=== PATIENT | male | born 1960 | race African-American/Black ===

== ENCOUNTER 2016-09-05 18:03 | Emergency (ER) | payer OTHER ==
[~2016-09-05] VITALS: Ht 180.3 cm; Wt 93.0 kg
[~2016-09-05 18:03] MED LIST: GLIP5TAB13 PO; LOSA25TA5 PO; METF850T PO
[2016-09-05 18:12] VITALS: Ht 180.3 cm; Wt 93.0 kg
[2016-09-05 20:12] LABS: ADD SCAN DIFF NO
[2016-09-05 20:17] LABS: BASOPHILS % 0.4 % (0.0-2.0); EOSINOPHILS # 0.2 10^3/ul (0.0-0.5); EOSINOPHILS % 2.2 % (0.0-7.0); HEMATOCRIT 24.4 % (42.0-52.0); HEMOGLOBIN 7.5 g/dl (14.0-18.0); LYMPHOCYTES # 1.8 10^3/ul (0.8-2.9); LYMPHOCYTES % 23.4 % (15.0-51.0); MEAN CORPUSCULAR HEMOGLOBIN 27.2 pg (29.0-33.0); MEAN CORPUSCULAR HGB CONC 30.7 g/dl (32.0-37.0); MEAN CORPUSCULAR VOLUME 88.4 fl (82.0-101.0); MEAN PLATELET VOLUME 11.7 fl (7.4-10.4); MONOCYTE # 0.7 10^3/ul (0.3-0.9); MONOCYTES % 9.2 % (0.0-11.0); NEUTROPHILS % 64.5 % (39.0-77.0); PLATELET COUNT 257 10^3/UL (140-415); RED BLOOD COUNT 2.76 10^6/ul (4.70-6.10); RED CELL DISTRIBUTION WIDTH 14.8 % (11.5-14.5); WHITE BLOOD COUNT 7.7 10^3/ul (4.8-10.8)
[2016-09-05 20:31] LABS: INR 1.06; PROTIME 13.8 Sec (12.2-14.2); PT RATIO 1.1
[2016-09-05 20:32] LABS: PARTIAL THROMBOPLASTIN TIME 32.2 Sec (25.0-35.0)
--- NOTE | 2016-09-05 20:35 | RADRPT ---
PROCEDURE: XR Chest. CLINICAL INDICATION: Chest pain. TECHNIQUE: Single frontal view of the chest. COMPARISON: None. FINDINGS: The cardiomediastinal silhouette is within normal limits. The lungs are clear. No signs of pleural f luid or pneumothorax are seen. The osseous structures and soft tissues are unremarkable. IMPRESSION: No evidence for active cardiopulmonary disease. RPTAT: [facility] Physician Tin Date Time Electronically viewed and signed by Physician Tin on 09/05/2016 20:35 RS/
[2016-09-05 20:39] LABS: ALANINE AMINOTRANSFERASE 37 IU/L (13-69); ALBUMIN 4.3 g/dl (3.3-4.9); ALKALINE PHOSPHATASE 85 IU/L (42-121); ANION GAP 15 (8-16); ASPARTATE AMINO TRANSFERASE 22 IU/L (15-46); BLOOD UREA NITROGEN 58 mg/dl (7-20); CALCIUM 9.4 mg/dl (8.4-10.2); CARBON DIOXIDE 17 mmol/L (21-31); CHLORIDE 113 mmol/L (97-110); CREATININE 2.78 mg/dl (0.61-1.24); GLUCOSE 217 mg/dl (70-220); POTASSIUM 5.1 mmol/L (3.5-5.1); SODIUM 140 mmol/L (135-144); TOTAL PROTEIN 8.6 g/dl (6.1-8.1)
[2016-09-05] MEDS ORDERED: SOD CHLORIDE 0.9% 250 ML IV ONE (20:50)
[2016-09-05] MEDS ORDERED: GLIP-95 PO (20:50)
[2016-09-05] MEDS ORDERED: METF500T4 PO (20:51)
[2016-09-05] MEDS ORDERED: FER325 PO (20:51)
[2016-09-05 20:52] LABS: TROPONIN-I < 0.012 ng/ml (0.00-0.12)
[2016-09-05 20:56] LABS: ADD UMIC YES; UR ASCORBIC ACID NEGATIVE (NEGATIVE); UR BACTERIA FEW /HPF (NONE SEEN); UR BILIRUBIN (Dip) NEGATIVE (NEGATIVE); UR BLOOD (Dip) 1+ mg/dL (NEGATIVE); UR CLARITY TURBID (CLEAR); UR COLOR YELLOW (YELLOW); UR GLUCOSE (Dip) NEGATIVE (NEGATIVE); UR KETONES (Dip) NEGATIVE (NEGATIVE); UR LEUKOCYTE ESTERASE (Dip) 3+ Leu/ul (NEGATIVE); UR NITRITE (Dip) NEGATIVE (NEGATIVE); UR RBC 4 /HPF (0-5); UR SPECIFIC GRAVITY (Dip) 1.014 (1.003-1.030); UR TOTAL PROTEIN (Dip) 1+ mg/dl (NEGATIVE); UR UROBILINOGEN (Dip) NEGATIVE (NEGATIVE)
--- NOTE | 2016-09-05 21:29 | ERD ---
ER Documentation Chief Complaint Date/Time DATE: 09/05/16 TIME: 21:27 Chief Complaint SEND BY PMD DUE LOW HGB,FEELS DIZZY HPI This is a 56-year-old male presents to the emergency room for evaluation of weakness and dizziness. The patient states that he was told by his primary care doctor who he is seen for 1 day that he has low blood count. The patient does not know what the number was and was sent to the emergency room for evaluation. He denies any chest pain, and denies any dark stools. He denies being on any blood thinners. ROS All systems reviewed and are negative except as per history of present illness. Medications Home Meds Reported Medications Ferrous Sulfate* (Ferrous Sulfate*) 325 Mg Tabec, 325 MG PO TID, TAB 09/05/16 Metformin Hcl* (Metformin Hcl*) 500 Mg Tablet, 500 MG PO WITH BREAKFAST DINNE, # 60 TAB 09/05/16 Glipizide* (Glipizide*) 10 Mg Tablet, 10 MG PO AC BREAKFAST DINNER, TAB 09/05/16 Losartan Potassium* (Losartan Potassium*) 25 Mg Tablet, 25 MG PO DAILY, TAB 06/12/15 Discontinued Reported Medications Glipizide* (Glipizide*) 5 Mg Tablet, 5 MG PO BID, TAB 06/12/15 Metformin Hcl* (Metformin Hcl*) 850 Mg Tablet, 850 MG PO WITH BREAKFAST DINNE, # 60 TAB 06/12/15 Allergies Allergies: Coded Allergies: No Known Allergy (Unverified , 09/05/16) PMhx/Soc History of Surgery: Yes (RT CATARACT) Anesthesia Reaction: No Hx Neurological Disorder: No Hx Respiratory Disorders: No Hx Cardiac Disorders: Yes (HTN) Hx Psychiatric Problems: No Hx Miscellaneous Medical Probl: No Hx Alcohol Use: Yes (SOCIALLY) Hx Substance Use: No Hx Tobacco Use: Yes Smoking Status: Never smoker Physical Exam Vitals Vital Signs Date Time Temp Pulse Resp B/P Pulse Ox O2 Delivery O2 Flow Rate FiO2 09/05/16 18:12 98.1 80 18 136/63 99 Physical Exam INITIAL VITAL SIGNS: Reviewed by me GENERAL: The patient is well developed and appropriate for usual state of health in no apparent distress HEENT: Pupils equal, round, and reactive to light. EOMI. There is no scleral icterus. NECK: C-spine is soft and supple, there is no meningismus. There is no cervical lymphadenopathy. LUNGS: Clear to auscultation bilaterally. There are no rales, wheezes or rhonchi. HEART: Regular rate and rhythm, no murmurs, clicks, rubs or gallops. ABDOMEN: Soft, non-tender, non-distended. There are bowel sounds in all four quadrants. No rebound or guarding. EXTREMITIES: There is no peripheral cyanosis or edema. No focal swelling or erythema. NEUROLOGICAL: The patient moves all four extremities with 5/5 strength. Cranial nerves II - XII are intact. Normal gait. Alert and oriented SKIN: There is no apparent rash or petechiae. Rectal: Brown stool heme-negative HEME/LYMPHATIC: There is no evidence of excessive bruising or lymphedema. PSYCHIATRIC: The patient does not appear anxious or depressed. Result Diagram: 09/05/16200409/05/162004 Results 24 hrs Laboratory Tests Test 09/05/16 20:05 09/05/16 20:20 White Blood Count 7.710^3/ul Red Blood Count 2.7610^6/ul Hemoglobin 7.5g/dl Hematocrit 24.4% Mean Corpuscular Volume 88.4fl Mean Corpuscular Hemoglobin 27.2pg Mean Corpuscular Hemoglobin Concent 30.7g/dl Red Cell Distribution Width 14.8% Platelet Count 28820^3/UL Mean Platelet Volume 11.7fl Neutrophils % 64.5% Lymphocytes % 23.4% Monocytes % 9.2% Eosinophils % 2.2% Basophils % 0.4% Nucleated Red Blood Cells % 0.0/100WBC Neutrophils # 5.010^3/ul Lymphocytes # 1.810^3/ul Monocytes # 0.710^3/ul Eosinophils # 0.210^3/ul Basophils # 0.010^3/ul Nucleated Red Blood Cells # 0.010^3/ul Prothrombin Time 13.8Sec Prothrombin Time Ratio 1.1 INR International Normalized Ratio 1.06 Activated Partial Thromboplast Time 32.2Sec Sodium Level 140mmol/L Potassium Level 5.1mmol/L Chloride Level 113mmol/L Carbon Dioxide Level 17mmol/L Anion Gap 15 Blood Urea Nitrogen 58mg/dl Creatinine 2.78mg/dl Glucose Level 217mg/dl Calcium Level 9.4mg/dl Total Bilirubin 0.0mg/dl Direct Bilirubin 0.00mg/dl Indirect Bilirubin 0.0mg/dl Aspartate Amino Transf (AST/SGOT) 22IU/L Alanine Aminotransferase (ALT/SGPT) 37IU/L Alkaline Phosphatase 85IU/L Troponin I < 0.012ng/ml Total Protein 8.6g/dl Albumin 4.3g/dl Globulin 4.30g/dl Albumin/Globulin Ratio 1.00 Urine Color YELLOW Urine Clarity TURBID Urine pH 5.0 Urine Specific Goode 1.014 Urine Ketones NEGATIVEmg/dL Urine Nitrite NEGATIVEmg/dL Urine Bilirubin NEGATIVEmg/dL Urine Urobilinogen NEGATIVEmg/dL Urine Leukocyte Esterase 3+Neal/ul Urine Microscopic RBC 4/HPF Urine Microscopic WBC > 182/HPF Urine Bacteria FEW/HPF Urine Hemoglobin 1+mg/dL Urine Glucose NEGATIVEmg/dL Urine Total Protein 1+mg/dl Current Medications Medications (Trade) Dose Ordered Sig/Musa Route PRN Reason Start Time Stop Time Status Last Admin Dose Admin Sodium Chloride (NS) 250 ml @ 0 mls/hr Q0M ONCE IV 09/05/16 20:50 09/05/16 20:52 DC Procedures/MDM EKG: Rate/Rhythm: [Normal Sinus Rhythm] QRS, ST, T-waves: [No changes consistent w/ acute ischemia] Impression: [No evidence of ischemia or arrhythmia] Chest X-ray 1V Interpreted by me: Soft Tissue: No acute abnormalities Bones: No acute abnormalities Mediastinum/Cardiac Silhouette/Lungs: [No acute abnormalities] This 46-year-old male presents to the emergency room for evaluation of generalized weakness. Patient does state that he was told his hemoglobin was low. I obtain blood work which shows a hemoglobin of 7.5. This patient has no active signs of bleeding. He does have a normocytic anemia. He is hemodynamically stable at this time. The patient will be transfused 1 unit of packed red blood cells and will be discharged home with instructions to follow- up with his primary care physician. The patient was also found to have a urinary tract infection. He was given 1 g Rocephin and will be discharged home at this time with a prescription for ciprofloxacin. The patient is okay to plan of care at this time. He was instructed to return to the ER any point if he develops any worsening symptoms Departure Diagnosis: Primary Impression: Dizziness Additional Impressions: Normocytic anemia Acute cystitis Condition: Stable ANANTH RUSSELL 6, 2017 21:29
[2016-09-05] MEDS ORDERED: CEFTRIAXONE 1 GM/50 ML (PMX) 50 ML IVPB ONE (21:30)
[2016-09-05] MEDS ORDERED: CIPR500T4 PO (21:30)
[2016-09-06 02:36] VITALS: BP 166/82; PULSE 84; RESP 20; TEMP 98.1
== END 2016-09-06 02:36 | disposition home or self-care (01) ==
LOC: E/R 18:03
DX: R42 Dizziness and giddiness (principal); D64.9 Anemia, unspecified; N30.00 Acute cystitis without hematuria; I10 Essential (primary) hypertension; R07.9 Chest pain, unspecified; Z79.84 Long term (current) use of oral hypoglycemic drugs
CPT/HCPCS: 36415; 36430; 71010; 80053; 81001; 84484; 85025; 85610; 85730; 86850; 86900; 86901; 86920; 93005; 96374; J0696; J7040; P9016; Z7502

== ENCOUNTER 2016-10-13 15:02 | Emergency (ER) | payer OTHER ==
[~2016-10-13] VITALS: Wt 88.5 kg
[~2016-10-13 15:02] MED LIST changes: +CIPR500T4 PO; +FER325 PO; +GLIP-95 PO; -GLIP5TAB13 PO; +METF500T4 PO; -METF850T PO
[2016-10-13] MEDS ORDERED: KETOROLAC 15 MG INJ IV STA (16:02)
--- NOTE | 2016-10-13 16:03 | RADRPT ---
PROCEDURE: XR Chest. CLINICAL INDICATION: Abdominal pain. TECHNIQUE: Single frontal chest x-ray. COMPARISON: Chest radiograph 09/05/2016. FINDINGS: The cardiomediastinal silhouette is unremarkable. No pneumothorax, pleural effusion or consolidation is seen. No acute osseous abnormality is noted. There is 2.1 cm calcified density projects over the left lower lung zone/upper abdomen. IMPRESSION: 1. 2.1 cm calcified density projects over the left lower lung zone/upper abdomen. Consider CT for f urther evaluation. RPTAT: QQ .James Hernandez MD, Date Time Electronically viewed and signed by .James Hernandez MD, on 10/13/2016 16:02 .N/
[2016-10-13 16:15] LABS: BASOPHIL # 0.1 10^3/ul (0.0-0.1); BASOPHILS % 0.6 % (0.0-2.0); EOSINOPHILS # 0.1 10^3/ul (0.0-0.5); EOSINOPHILS % 1.4 % (0.0-7.0); HEMATOCRIT 31.3 % (42.0-52.0); HEMOGLOBIN 9.7 g/dl (14.0-18.0); LYMPHOCYTES # 1.4 10^3/ul (0.8-2.9); MEAN CORPUSCULAR HEMOGLOBIN 27.2 pg (29.0-33.0); MEAN CORPUSCULAR VOLUME 87.7 fl (82.0-101.0); MEAN PLATELET VOLUME 12.8 fl (7.4-10.4); MONOCYTE # 0.6 10^3/ul (0.3-0.9); MONOCYTES % 6.8 % (0.0-11.0); NEUTROPHIL # 6.5 10^3/ul (1.6-7.5); NEUTROPHILS % 75.1 % (39.0-77.0); PLATELET COUNT 231 10^3/UL (140-415); RED BLOOD COUNT 3.57 10^6/ul (4.70-6.10); RED CELL DISTRIBUTION WIDTH 14.4 % (11.5-14.5); WHITE BLOOD COUNT 8.6 10^3/ul (4.8-10.8)
[2016-10-13 16:30] LABS: INR 1.04; PROTIME 13.6 Sec (12.2-14.2); PT RATIO 1.1
[2016-10-13] MEDS ORDERED: ENALAPRILAT 1.25 MG INJ IV ONE (16:30)
[2016-10-13 16:36] LABS: ALANINE AMINOTRANSFERASE 40 IU/L (13-69); ALBUMIN 4.3 g/dl (3.3-4.9); ALBUMIN/GLOBULIN RATIO 0.97; ALKALINE PHOSPHATASE 89 IU/L (42-121); ANION GAP 18 (8-16); ASPARTATE AMINO TRANSFERASE 22 IU/L (15-46); BILIRUBIN,INDIRECT 0.3 mg/dl (0-1.1); BILIRUBIN,TOTAL 0.3 mg/dl (0.2-1.3); BLOOD UREA NITROGEN 73 mg/dl (7-20); CALCIUM 9.6 mg/dl (8.4-10.2); CARBON DIOXIDE 21 mmol/L (21-31); CHLORIDE 103 mmol/L (97-110); CREATININE 6.12 mg/dl (0.61-1.24); GLUCOSE 129 mg/dl (70-220); POTASSIUM 5.2 mmol/L (3.5-5.1); SODIUM 137 mmol/L (135-144); TOTAL PROTEIN 8.7 g/dl (6.1-8.1)
[2016-10-13 16:44] LABS: B-TYPE NATRIURETIC PEPTIDE 752 PG/ML (0-125)
[2016-10-13 16:46] LABS: TROPONIN-I < 0.012 ng/ml (0.00-0.12)
[2016-10-13 17:06] VITALS: BP 201/111; PULSE 81; RESP 16
--- NOTE | 2016-10-13 18:07 | ERA ---
ER Documentation Chief Complaint Date/Time DATE: 10/13/16 TIME: 18:03 Chief Complaint CHEST TIGHTNESS X 3 DAYS HPI 56-year-old man complains of sharp chest pain intermittently 3 days, as he states the pain lasts a few minutes each time. He was discharged from [facility] about a week ago after a one-week stay for intractable vomiting. Patient states she had full workup and imaging studies including a CT scan and has follow-up coordinated with his physician tomorrow morning. He states since discharge his nausea and vomiting has improved although over the last few days he has had bilateral lower extremity swelling. He denies shortness of breath, no fevers or chills, no vomiting or diarrhea, no headache or blurry vision. Patient admits to having kidney problems but does not know his creatinine clearance or creatinine level, but states he has never had hemodialysis. ROS All systems reviewed and are negative except as per history of present illness. Medications Home Meds Active Scripts Ciprofloxacin Hcl* (Ciprofloxacin Hcl*) 500 Mg Tablet, 500 MG PO BID, #14 TAB Prov:ANANTH RUSSELL DO 09/05/16 Reported Medications Ferrous Sulfate* (Ferrous Sulfate*) 325 Mg Tabec, 325 MG PO TID, TAB 09/05/16 Metformin Hcl* (Metformin Hcl*) 500 Mg Tablet, 500 MG PO WITH BREAKFAST DINNE, # 60 TAB 09/05/16 Glipizide* (Glipizide*) 10 Mg Tablet, 10 MG PO AC BREAKFAST DINNER, TAB 09/05/16 Losartan Potassium* (Losartan Potassium*) 25 Mg Tablet, 25 MG PO DAILY, TAB 06/12/15 Allergies Allergies: Coded Allergies: No Known Allergy (Unverified , 09/05/16) PMhx/Soc Hypertension, diabetes mellitus, renal problems, history of anemia with recent transfusion. History of Surgery: Yes (RT CATARACT) Anesthesia Reaction: No Hx Neurological Disorder: No Hx Respiratory Disorders: No Hx Cardiac Disorders: Yes (HTN) Hx Psychiatric Problems: No Hx Miscellaneous Medical Probl: No Hx Alcohol Use: Yes (SOCIALLY) Hx Substance Use: No Hx Tobacco Use: Yes Smoking Status: Former smoker FmHx Family History: No diabetes Physical Exam Vitals Vital Signs Date Time Temp Pulse Resp B/P Pulse Ox O2 Delivery O2 Flow Rate FiO2 10/13/16 17:06 81 16 201/111 99 Room Air 10/13/16 15:04 98.0 78 18 196/95 99 Physical Exam GENERAL: Well-developed, well-nourished, well-hydrated, in no apparent distress , looks nontoxic in appearance HEENT: Moist mucous membranes, pink conjunctiva, no cervical spine tenderness or step-off deformities, no goiter, no jaundice or icterus, extraocular movements intact without pain. No submandibular induration, and no pharyngeal erythema NEURO: Alert and oriented 3, cranial nerves II through XII intact bilaterally, pupils equal round reactive to light, no focal deficits or facial asymmetry, sensation intact distally Strength 5/5 in upper and lower extremities bilaterally CARDIAC: Regular rate and rhythm, no murmurs rubs or gallops LUNGS: Clear bilaterally no wheezing crackles or stridor ABDOMEN: Soft nontender, no guarding, no rigidity, no rebound, no psoas sign no obturator sign. Normoactive bowel sounds SKIN: Warm and dry to touch, no abrasions, contusions, or hematomas, no lacerations, no ecchymosis, no target lesions, and without ulcers EXTREMITIES: No clubbing cyanosis, 3+ pitting edema in the lower extremities bilaterally, calves are bilaterally symmetrical, no Homans sign, no popliteal cord sign. Distal pulses equal and bilateral PSYCH: Normal affect without agitation or irritability Result Diagram: 10/13/16 1538 10/13/16 1538 Results 24 hrs Laboratory Tests Test 10/13/16 15:38 White Blood Count 8.610^3/ul Red Blood Count 3.5710^6/ul Hemoglobin 9.7g/dl Hematocrit 31.3% Mean Corpuscular Volume 87.7fl Mean Corpuscular Hemoglobin 27.2pg Mean Corpuscular Hemoglobin Concent 31.0g/dl Red Cell Distribution Width 14.4% Platelet Count 69259^3/UL Mean Platelet Volume 12.8fl Neutrophils % 75.1% Lymphocytes % 16.0% Monocytes % 6.8% Eosinophils % 1.4% Basophils % 0.6% Nucleated Red Blood Cells % 0.0/100WBC Neutrophils # 6.510^3/ul Lymphocytes # 1.410^3/ul Monocytes # 0.610^3/ul Eosinophils # 0.110^3/ul Basophils # 0.110^3/ul Nucleated Red Blood Cells # 0.010^3/ul Prothrombin Time 13.6Sec Prothrombin Time Ratio 1.1 INR International Normalized Ratio 1.04 Sodium Level 137mmol/L Potassium Level 5.2mmol/L Chloride Level 103mmol/L Carbon Dioxide Level 21mmol/L Anion Gap 18 Blood Urea Nitrogen 73mg/dl Creatinine 6.12mg/dl Glucose Level 129mg/dl Calcium Level 9.6mg/dl Total Bilirubin 0.3mg/dl Direct Bilirubin 0.00mg/dl Indirect Bilirubin 0.3mg/dl Aspartate Amino Transf (AST/SGOT) 22IU/L Alanine Aminotransferase (ALT/SGPT) 40IU/L Alkaline Phosphatase 89IU/L Troponin I < 0.012ng/ml B-Type Natriuretic Peptide 752PG/ML Total Protein 8.7g/dl Albumin 4.3g/dl Globulin 4.40g/dl Albumin/Globulin Ratio 0.97 Lipase 100U/L Current Medications Medications (Trade) Dose Ordered Sig/Musa Route PRN Reason Start Time Stop Time Status Last Admin Dose Admin Enalaprilat (Vasotec Iv) 1.25 mg ONCE ONCE IV 10/13/16 16:30 10/13/16 16:31 DC 10/13/16 16:09 Ketorolac Tromethamine (Toradol) 15 mg ONCE STAT IV 10/13/16 16:02 10/13/16 16:03 DC 10/13/16 16:08 Procedures/MDM IV line was established 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 Patient was afebrile. EKG performed, read by me: 75 bpm, normal sinus rhythm, normal axis, no acute ST segment changes, narrow QRS complex, with good R-wave progression in precordial leads. One view chest x-ray performed, read by me there is a circular ring-enhancing mass in the left lower lobe of the lung possibly underneath the diaphragm although no acute infiltrates, no pulmonary vascular congestion, no pneumothorax. Departure Diagnosis: Primary Impression: Renal failure Additional Impression: Chest pain Condition: Good Patient Instructions: [place] Form- 1 RAY TEMPLE MD Oct 13, 2016 18:07
== END 2016-10-13 17:10 | disposition left against medical advice (07) ==
LOC: E/R 15:02
DX: N19 Unspecified kidney failure (principal); I10 Essential (primary) hypertension; E11.9 Type 2 diabetes mellitus without complications; Z87.891 Personal history of nicotine dependence; Z79.84 Long term (current) use of oral hypoglycemic drugs
CPT/HCPCS: 36415; 71010; 80053; 83690; 83880; 84484; 85025; 85610; 86850; 86900; 86901; 96374; 96375; J1885; Z7502; Z7610

== ENCOUNTER 2016-11-12 20:07 | Emergency (ER) | payer OTHER ==
[~2016-11-12] VITALS: Ht 170.2 cm; Wt 74.5 kg
[2016-11-12 20:12] VITALS: Ht 170.2 cm; Wt 74.5 kg
[2016-11-13] MEDS ORDERED: HYDROCODONE/APAP (5/325) TAB PO ONE (00:30)
--- NOTE | 2016-11-13 00:45 | RADRPT ---
PROCEDURE: XR left shoulder. CLINICAL INDICATION: Fall, pain TECHNIQUE: 3 views of the left shoulder were performed. COMPARISON: None. FINDINGS: No fracture or dislocation seen. Mild osteoarthrosis at the glenohumeral joint. Small inferior spur arising from distal clavicle. Suggestive of old trauma in the coracoclavicular region. Nonspecific a pproximate 2.5 x 1.9 cm oval ring-like calcific density projected over the region of the left hemidi aphragm also seen on previous chest x-rays of 10/13/2016 and 09/05/2016. IMPRESSION: No acute abnormality seen. Please see above. RPTAT: HJES .Edgard Green MD, Date Time Electronically viewed and signed by .Edgard Green MD, on 11/13/2016 00:45 .S/
--- NOTE | 2016-11-13 00:49 | RADRPT ---
PROCEDURE: Left humerus x-ray CLINICAL INDICATION: Fall, pain TECHNIQUE: AP and lateral views of the humerus were obtained. COMPARISON: None FINDINGS: There is marked soft tissue swelling posterior to the olecranon process of the ulna and medial and l ateral to the elbow with multiple small calcific/ossific densities posterior to the elbow suggestive of an avulsion fracture. Elbow hemarthrosis is also apparent. No fracture of the humerus is seen. 7 mm rounded radiodensity projected over soft tissues of the posterior mid upper arm on lateral view not seen on the AP view which could be overlying the patient. A similar radiodensity is seen to be o utside the upper upper arm. IMPRESSION: There is marked soft tissue swelling posterior to the olecranon process of the ulna and medial and l ateral to the elbow with multiple small calcific/ossific densities posterior to the elbow suggestive of an avulsion fracture. Elbow hemarthrosis is also apparent. RPTAT: HJES .Edgard Green MD, MD Date Time Electronically viewed and signed by .Edgard Green MD, on 11/13/2016 00:49 .S/
--- NOTE | 2016-11-13 00:51 | RADRPT ---
PROCEDURE: XR Forearm. CLINICAL INDICATION: Fall, pain TECHNIQUE: AP and lateral views of the left forearm were obtained. COMPARISON: No prior studies are available for comparison. FINDINGS: There is marked soft tissue swelling posterior to the olecranon process of the ulna and medial and l ateral to the elbow with multiple small calcific/ossific densities posterior to the elbow suggestive of an avulsion fracture. Elbow hemarthrosis is also apparent. Arterial calcification volar to the w rist. IMPRESSION: There is marked soft tissue swelling posterior to the olecranon process of the ulna and medial and l ateral to the elbow with multiple small calcific/ossific densities posterior to the elbow suggestive of an avulsion fracture. Elbow hemarthrosis is also apparent. RPTAT: HJES .Edgard Green MD, Date Time Electronically viewed and signed by .Edgard Green MD, on 11/13/2016 00:50 .S/
--- NOTE | 2016-11-13 00:52 | RADRPT ---
PROCEDURE: XR Left Elbow. CLINICAL INDICATION: Fall and pain TECHNIQUE: AP and lateral views of the left elbow performed. COMPARISON: None. FINDINGS: There is marked soft tissue swelling posterior to the olecranon process of the ulna and medial and l ateral to the elbow with multiple small calcific/ossific densities posterior to the elbow suggestive of an avulsion fracture. Elbow hemarthrosis is also apparent. IMPRESSION: There is marked soft tissue swelling posterior to the olecranon process of the ulna and medial and l ateral to the elbow with multiple small calcific/ossific densities posterior to the elbow suggestive of an avulsion fracture. Elbow hemarthrosis is also apparent. RPTAT: HJES .Edgard Green MD, MD Date Time Electronically viewed and signed by .Edgard Green MD, on 11/13/2016 00:51 .S/
[2016-11-13] MEDS ORDERED: HYDR-902 PO (01:05)
--- NOTE | 2016-11-13 01:09 | ERD ---
ER Documentation Chief Complaint Date/Time DATE: 11/13/16 TIME: 01:08 Chief Complaint let arm swelling due to ground level fall, dialyzed today HPI 56-year-old male here with complaint of left elbow swelling after falling to the ground a couple days ago. Denies any head trauma. Denies any loss of consciousness. Denies any other current issues. ROS All systems reviewed and are negative except as per history of present illness. Medications Home Meds Active Scripts Hydrocodone/Acetaminophen ([place] 10-325 Tablet) 1 Each Tablet, 1 TAB PO Q6H Y for PAIN, #20 TAB Prov:FADIA GAMBOA 11/13/16 Ciprofloxacin Hcl* (Ciprofloxacin Hcl*) 500 Mg Tablet, 500 MG PO BID, #14 TAB Prov:ANANTH RUSSELL DO 09/05/16 Reported Medications Ferrous Sulfate* (Ferrous Sulfate*) 325 Mg Tabec, 325 MG PO TID, TAB 09/05/16 Metformin Hcl* (Metformin Hcl*) 500 Mg Tablet, 500 MG PO WITH BREAKFAST DINNE, # 60 TAB 09/05/16 Glipizide* (Glipizide*) 10 Mg Tablet, 10 MG PO AC BREAKFAST DINNER, TAB 09/05/16 Losartan Potassium* (Losartan Potassium*) 25 Mg Tablet, 25 MG PO DAILY, TAB 06/12/15 Allergies Allergies: Coded Allergies: No Known Allergy (Unverified , 09/05/16) PMhx/Soc History of Surgery: Yes (RT CATARACT) Anesthesia Reaction: No Hx Neurological Disorder: No Hx Respiratory Disorders: No Hx Cardiac Disorders: Yes (HTN) Hx Psychiatric Problems: No Hx Miscellaneous Medical Probl: Yes (DM, kidney failure) Hx Alcohol Use: Yes (SOCIALLY) Hx Substance Use: No Hx Tobacco Use: No Smoking Status: Never smoker Physical Exam Vitals Vital Signs Date Time Temp Pulse Resp B/P Pulse Ox O2 Delivery O2 Flow Rate FiO2 11/12/16 20:12 97.8 88 20 100/60 99 Physical Exam Const: [] Head: Atraumatic Eyes: Normal Conjunctiva ENT: Normal External Ears, Nose and Mouth. Neck: Full range of motion..~ No meningismus. Resp: Clear to auscultation bilaterally Cardio: Regular rate and rhythm, no murmurs Abd: Soft, non tender, non distended. Normal bowel sounds Skin: No petechiae or rashes Back: No midline or flank tenderness Ext: No cyanosis, or edema Neur: Awake and alert Psych: Normal Mood and Affect Results 24 hrs Current Medications Medications (Trade) Dose Ordered Sig/Musa Route PRN Reason Start Time Stop Time Status Last Admin Dose Admin Acetaminophen/ Hydrocodone Bitart ([place] (5/325)) 1 tab ONCE ONCE PO 11/13/16 00:30 11/13/16 00:31 DC 11/13/16 00:22 Procedures/MDM X-ray Elbow 3V Interpreted by me: Fat Pads: Normal Bones: Avulsion fracture noted olecranon Joints: No dislocation Foreign body: None X-ray Humerus 2V Interpreted by me: Bones: No fracture Joints: No dislocation Foreign body: None X-ray Shoulder 3V Interpreted by me: Bones: No fracture Joints: No dislocation Foreign body: None Medical decision-makin-year-old with avulsion fracture. Placed in a short arm posterior splint. Neurovascularly intact post splint application. Follow- up with orthosis outpatient. Splint Assessment: Neurovascularly intact post splint placement with good fit. Departure Diagnosis: Primary Impression: Swelling Condition: Stable Patient Instructions: Elbow Fracture FADIA GAMBOA Nov 13, 2016 01:09
[2016-11-13 02:04] VITALS: BP 138/71; PULSE 71; RESP 20; TEMP 97.8
== END 2016-11-13 02:05 | disposition home or self-care (01) ==
LOC: E/R 20:07
DX: R22.32 Localized swelling, mass and lump, left upper limb (principal); I10 Essential (primary) hypertension; E11.9 Type 2 diabetes mellitus without complications; Z79.84 Long term (current) use of oral hypoglycemic drugs
CPT/HCPCS: 73030; 73060; 73070; 73090; Z7502; Z7610